=== PATIENT | female | born 1960 | race Caucasian/White ===

== ENCOUNTER → 2017-11-22 | Outpatient (CLI) | payer OTHER ==
[~2017-11-22] MED LIST: CITA-155 PO; DULO30CA6 PO; DULO60CA56 PO; MELO-207 PO; METF-1 PO; PER PO
[2017-11-22 14:36] LABS: PLATELET COUNT, AUTOMATED 269 K/uL (150-450)
== END ==
LOC: LAB 14:06
PROVIDERS: ATTEND Internal Medicine
DX: R13.10 Dysphagia, unspecified (principal); G47.33 Obstructive sleep apnea (adult) (pediatric); Z86.39 Personal history of other endocrine, nutritional and metabolic disease
CPT/HCPCS: 36415; 82040; 82247; 82310; 82374; 82435; 82565; 82947; 84075; 84132; 84155; 84295; 84439; 84443; 84450; 84460; 84520; 85025

== ENCOUNTER → 2017-11-24 | Outpatient (CLI) | payer OTHER ==
--- NOTE | 2017-11-24 16:25 | RADIOLOGY IMAGING REPORT ---
FACILITY: [facility] PATIENT NAME: Melissa Pizarro : 1960 MR: [id number] V: [id number] EXAM DATE: ORDERING PHYSICIAN: APRYL TORO TECHNOLOGIST: Location: [facility] Patient: Melissa Pizarro : 1960 Visit/Account:[id number] Date of Sevice: 11/24/2017 THYROID Indication: History of hypothyroidism. Comparison study: None Procedure: There has been satisfactory grayscale ultrasonic evaluation of the thyroid gland. Findings: Right lobe: The right lobe measures 4.4 cm x 1.3 cm x 1.1 cm in its sagittal, transverse and AP dimen sions. No nodules are noted. Echotexture is homogeneous. Left lobe: The left lobe measures 4.3 cm x 0.9 cm x 1.3 cm in its sagittal, transverse and AP dimensi ons. Echotexture is homogeneous and no nodules are seen. IMPRESSION: Normal thyroid ultrasound without findings of a dominant nodule in the right or left lobe . Report Dictated By: Richard Whitfield MD at 11/24/2017 4:19 PM Report E-Signed By: Richard Whitfield MD at 11/24/2017 4:22 PM WSN:[email or web address]
== END ==
LOC: US 07:35
PROVIDERS: ATTEND Internal Medicine
DX: R10.13 Epigastric pain (principal); Z86.39 Personal history of other endocrine, nutritional and metabolic disease
CPT/HCPCS: 76536

== ENCOUNTER → 2018-05-23 | Outpatient (CLI) | payer OTHER ==
[~2018-05-23] MED LIST changes: +FLUT16SP19 NS; +PANT40TA65 PO
--- NOTE | 2018-05-23 14:36 | RADIOLOGY IMAGING REPORT ---
FACILITY: [facility] PATIENT NAME: Melissa Pizarro : 1960 MR: [id number] V: [id number] EXAM DATE: ORDERING PHYSICIAN: APRYL TORO TECHNOLOGIST: Location[place] [facility] [place] Patient: Melissa Pizarro : 1960 Visit/Account:[id number] Date of Sevice: 05/23/2018 Exam type: FACIAL BONES MIN 3 VIEW History: pain contusion lower jaw around chin Comparison: None. Findings: There is no plain radiograph evidence of an acute facial bone fracture. Paranasal sinuses appear to be well aerated. No radiopaque foreign bodies identified. Incidentally noted are bilateral dental r estorations.. IMPRESSION: 1. No plain radiograph evidence of acute facial bone fracture. Report Dictated By: Grace Mac MD at 05/23/2018 2:28 PM Report E-Signed By: Grace Mac MD at 05/23/2018 2:31 PM WSN:[email or web address]
== END ==
LOC: RAD 11:27
PROVIDERS: ATTEND Internal Medicine
DX: R68.84 Jaw pain (principal); S00.83XA Contusion of other part of head, initial encounter
CPT/HCPCS: 70150

== ENCOUNTER → 2018-10-24 | Outpatient (CLI) | payer OTHER | LOC: LAB 13:56 | PROVIDERS: ATTEND Internal Medicine | DX: G47.33 Obstructive sleep apnea (adult) (pediatric) (principal); Z86.010 Personal history of colon polyps; Z86.39 Personal history of other endocrine, nutritional and metabolic disease; R35.0 Frequency of micturition; R82.79 Other abnormal findings on microbiological examination of urine | CPT/HCPCS: 81001; 87088 ==

== ENCOUNTER → 2018-10-25 | Outpatient (CLI) | payer OTHER ==
[2018-10-25 07:51] LABS: PLATELET COUNT, AUTOMATED 251 K/uL (150-450)
[2018-10-25 08:17] LABS: LDL CHOLESTEROL 131 mg/dl
== END ==
LOC: LAB 07:37
PROVIDERS: ATTEND Internal Medicine
DX: G47.33 Obstructive sleep apnea (adult) (pediatric) (principal); Z86.010 Personal history of colon polyps; Z86.39 Personal history of other endocrine, nutritional and metabolic disease; R35.0 Frequency of micturition
CPT/HCPCS: 36415; 82040; 82247; 82310; 82374; 82435; 82465; 82565; 82947; 83036; 83718; 84075; 84132; 84155; 84295; 84443; 84450; 84460; 84478; 84520; 85025

== ENCOUNTER → 2018-12-29 | Outpatient (CLI) | payer OTHER ==
[~2018-12-29] MED LIST changes: +DOXY-181 PO; +ONDA4TAB97 PO
[2018-12-29 16:08] LABS: PLATELET COUNT, AUTOMATED 268 K/uL (150-450)
--- NOTE | 2018-12-30 07:23 | EKG ---
FACILITY: [facility] PATIENT NAME: WEN GUTIERREZ : [id number] MR: [id number] V: [id number] EXAM DATE: ORDERING PHYSICIAN: EMILY ACUNA TECHNOLOGIST: UDAY Test Reason : Blood Pressure : / mmHG Vent. Rate : 063 BPM Atrial Rate : 063 BPM P-R Int : 176 ms QRS Dur : 074 ms QT Int : 420 ms P-R-T Axes : 034 -19 016 degrees QTc Int : 429 ms Normal sinus rhythm Normal ECG No previous ECGs available Referred By: EMILY ACUNA Confirmed By:
== END ==
LOC: LAB 15:40
PROVIDERS: ATTEND Nurse Practitioner Family
DX: R51 Headache (principal); R53.83 Other fatigue; R42 Dizziness and giddiness; R68.83 Chills (without fever)
CPT/HCPCS: 82040; 82150; 82247; 82310; 82374; 82435; 82565; 82947; 83690; 83735; 84075; 84132; 84155; 84295; 84443; 84450; 84460; 84520; 85025

== ENCOUNTER 2019-02-14 08:58 | Outpatient (RCR) | payer OTHER ==
[~2019-02-14] VITALS: Ht 167.6 cm; Wt 82.6 kg
--- NOTE | 2019-02-15 11:24 | Medical Nutrition Therapy ---
Nutrition Anthropometrics Height (Inches): 66 Weight (Pounds): 182 BMI: 29.3 Oswaldo Nutrition Score: Oswaldo Nutrition Risk Score: Dietary Referral Nutrition Risk Factors: Nutrition Risk Comment: Nutrition/Food History Breakfast: fruit Lunch: leftovers, or meat, cheese, carrots or fast foods Dinner: chiken, rice, salad or fast foods Snacks: popcorn, cookies Nutritional Education Nutrition Education Topic: Weight Loss Diet Learning Barriers: Emotional Learning Readiness: Interested Teaching Methods: Discussion, Handout, Demonstration Response to Teaching: Verbalize understanding, Reinforcement needed Teaching Recipient: Patient, Significant Other Nutrition Counseling: Pt states wt has increased 50# past year with no change in meds or precieved change in intake. Pt states retired last year. Pt states is under high level of stress with family issues. retireing may have affecting eating pattern that pt was unaware of . Past 3 weeks physical activity increased r/t moving father into a new facility. Pt recorded food intake on phone jason. Kcal averaged 1295 for past 2 weeks. Est kcal needs based on light activity is 1800 kcal. Pt should have lost wt based on her kcal reporting. Instead her wt is up 1# from when weighed at dr office last week. Type of foods may be playing a role as pt had been eating fast foods and grab and go food because of activity. Also pt may not have accurately recorded portion sizes. However pt reports has been on thyroid meds in past because of a low/normal thyroid. Pt may benefit from thyroid meditcation to help with metabolism. Pt reporting high level of stress mostly r/t family issues. Discussed stress relieveing activities. Encouraged pt to f/u with counselor to help her to deal with her issues. High stress levels may also be contributing to wt gain. Reviewed what is prediabetes. Discussed various diet plan to help with wt loss. Provided meal plan of 30gm CHO/meal with unlimited lean meat and veggies. Pt interested in mediterannian diet. Will provide mediterrainan diet on f/u visit 02/21. Nutrition Monitoring & Eval RD Patient Assessment Time: [address] Assessment Type: RD Education Nutritional Comment: provided 50 minutes MNT for wt loss, prediabetes Copies To Copies to: EMILY ACUNA APRNP-C; APRYL TORO MD ; MAIRA PUGH February 14, 2019 16:09
== END 2019-03-21 ==
LOC: DIET 08:58
PROVIDERS: ATTEND Nurse Practitioner Family
DX: R63.5 Abnormal weight gain (principal); Z86.39 Personal history of other endocrine, nutritional and metabolic disease; Z83.3 Family history of diabetes mellitus; Z71.3 Dietary counseling and surveillance
CPT/HCPCS: 97802

== ENCOUNTER 2019-02-21 08:26 | Outpatient (CLI) | payer OTHER ==
--- NOTE | 2019-02-21 15:58 | Medical Nutrition Therapy ---
Nutrition Anthropometrics Weight (Pounds): 180 Oswaldo Nutrition Score: Oswaldo Nutrition Risk Score: Dietary Referral Nutrition Risk Factors: Nutrition Risk Comment: Nutrition/Food History Breakfast: quiche Lunch: leftovers or fruit Dinner: meat, starch, nuts , fruit, veg Nutritional Education Nutrition Education Topic: Weight Loss Diet (prediabetes) Learning Readiness: Interested Teaching Methods: Discussion, Handout Response to Teaching: Verbalize understanding Teaching Recipient: Patient Nutrition Counseling: Pt cont tracking food kcal. Intake averaged 1080kcal/day. Pt did lose 2# past week however pt state she was not satisfifed and didn't feel this was adequate kcals. Reviwed low, med, and high glycemic index foods. Reviewed mediterranian diet and developed 3-5 days worth of menu ideas. Recommended pt to f/u with PCP to discuss potential hypothyroid which may be contributing to wt gain. Recommend pt work with counselor to assist in managing stress. Provided mediterranian web site and diabetes web site for recipe ideas. Pt declined coming back for weigh-ins. Nutrition Monitoring & Eval RD Patient Assessment Time: 45 minutes Nutritional Comment: Provided 50 minute MNT for prediabetes Copies To Copies to: EMILY ACUNA APRN CHAIN SAW DRIVER-C; APRYL TORO MD ; MAIRA PUGH February 21, 2019 15:58
== END 2019-02-22 12:26 | disposition home or self-care (01) ==
LOC: DIET 08:26
PROVIDERS: ATTEND Nurse Practitioner Family
DX: R63.8 Other symptoms and signs concerning food and fluid intake (principal); Z86.39 Personal history of other endocrine, nutritional and metabolic disease; Z83.3 Family history of diabetes mellitus
CPT/HCPCS: 97803

== ENCOUNTER → 2019-05-15 | Outpatient (CLI) | payer OTHER ==
[~2019-05-15] MED LIST changes: +CIPR-344 PO; +IOPAMIDOL 76% 100 ML INFUS BTL 100 ML ONE; +METR500T15 PO
--- NOTE | 2019-05-15 17:29 | RADIOLOGY IMAGING REPORT ---
FACILITY: [facility] [place] PATIENT NAME: Melissa Pizarro : 1960 MR: [id number] V: [id number] EXAM DATE: ORDERING PHYSICIAN: APRYL TORO TECHNOLOGIST: Location: [facility] Patient: Melissa Pizarro : 1960 Visit/Account:[id number] Date of Sevice: 05/15/2019 CT ABDOMEN PELVIS W/ CON HISTORY: Right-sided abdominal pain. TECHNIQUE: CT abdomen and pelvis with intravenous contrast. One of the following dose optimization techniques was utilized in the performance of this exam: Autom ated exposure control; adjustment of the mA and/or kV according to the patient's size; or use of an i terative reconstruction technique. Specific details can be referenced in the facility's radiology C T exam operational policy. CONTRAST: 75 mL Isovue-370. COMPARISON: None. FINDINGS: Visualized lung bases: Small nodules within the left lower lobe measuring up to 3 mm. Otherwise nega tive. Hepatobiliary: Small cyst within the right hepatic lobe. Otherwise negative. Spleen: Negative. Adrenals: Negative. Pancreas: Negative. Kidneys/: Uterus is surgically absent. Otherwise negative. GI: Moderate circumferential wall thickening of the descending colon. No associated diverticular dis ease. Minimal scattered diverticulosis throughout the colon without evidence for diverticulitis. Appe ndix is unremarkable. Vessels/spaces/nodes: Multiple nonspecific rounded subcentimeter right lower quadrant lymph nodes. N o pathologically enlarged lymph nodes identified. No free fluid or free air. Bones/soft tissues: Negative. IMPRESSION: 1. Moderate circumferential wall thickening of the descending colon, most compatible with an infectio us/inflammatory colitis. 2. Small nonspecific pulmonary nodules within the left lower lobe measuring up to 3 mm. In the absenc e of malignancy, no dedicated follow-up is recommended given low likelihood of malignancy, as below. 3. Multiple nonspecific rounded subcentimeter right lower quadrant lymph nodes. No pathologically enl arged lymph nodes identified. 4. Additional incidental/chronic findings, as above. [employer] FOLLOW-UP GUIDELINES FOR NEWLY DETECTED INCIDENTAL NODULES IN PERSONS 35 YEARS OF AGE OR OLDER. *These recommendations do NOT apply to lung cancer screening, patients with immunosuppression or don ents with a known primary malignancy. NODULE(S) IDENTIFIED ON INCOMPLETE CHEST If nodule size is < 6 mm: * No further investigation on the basis of the estimated low risk of malignancy. Heidi H, Allie DP, Franklin SORIANO, et al. Guidelines for Management of Incidental Pulmonary Nodules Dete cted on CT Images: From the Fleischner Society 2017. Radiology. [facility] Report Dictated By: Domenic Astudillo MD at 05/15/2019 5:15 PM Report E-Signed By: Domenic Astudillo MD at 05/15/2019 5:21 PM WSN:[id number]
== END ==
LOC: CT 16:22
PROVIDERS: ATTEND Internal Medicine
DX: K63.89 Other specified diseases of intestine (principal); R91.8 Other nonspecific abnormal finding of lung field; R59.0 Localized enlarged lymph nodes
CPT/HCPCS: 74177; Q9967

== ENCOUNTER → 2019-05-15 | Outpatient (CLI) | payer OTHER ==
[~2019-05-15] MED LIST changes: -IOPAMIDOL 76% 100 ML INFUS BTL 100 ML ONE
[2019-05-15 12:22] LABS: PLATELET COUNT, AUTOMATED 249 K/uL (150-450)
== END ==
LOC: LAB 11:44
PROVIDERS: ATTEND Internal Medicine
DX: R10.9 Unspecified abdominal pain (principal); R19.7 Diarrhea, unspecified
CPT/HCPCS: 36415; 81001; 82040; 82150; 82247; 82274; 82310; 82374; 82435; 82565; 82947; 83630; 83690; 84075; 84132; 84155; 84295; 84450; 84460; 84520; 85025; 87045; 87205; 87493